=== PATIENT | male | born 1995 | race African-American/Black ===

== ENCOUNTER 2018-08-31 00:28 | Emergency (ER) | payer SELFPAY ==
[~2018-08-31] VITALS: Ht 188 cm; Wt 114.3 kg
--- NOTE | 2018-08-31 01:10 | NUR ---
Dr. Combs at bedside for MSE.
--- NOTE | 2018-08-31 01:18 | NUR ---
Patient discharged to home in stable conditon. Written and verbal after care instructions given. Patient verbalizes understanding of instructions. Patient ambulated out of ER with steady gait, no acute signs of distress, VSS, all belongings taken.
[2018-08-31 01:19] VITALS: BP 117/97
== END 2018-08-31 01:20 | disposition home or self-care (01) ==
LOC: ER 00:30
DX: J20.9 Acute bronchitis, unspecified (principal)
CPT/HCPCS: A4663